=== PATIENT | female | born 1975 | race Caucasian/White ===

== ENCOUNTER 2024-02-12 16:03 | Emergency (ER) | payer OTHER, SELFPAY ==
[2024-02-12 16:04] VITALS: BP 159/94
--- NOTE | 2024-02-12 17:17 | ED.GENMED ---
History of Present Illness
General
Chief Complaint: Musculo-Skeletal Complaint
Source: patient and family
Exam Limitations: none
Time Seen by Provider: 02/12/24 16:24
Nursing documentation reviewed up to this point in time: agreed with
History of Present Illness
History of Present Illness:
48-year-old female past medical history of ADHD bipolar asthma presenting to the emergency department today with concerns of left-sided leg swelling over the past 2 weeks. Initially believes he may have sustained some type of injury while working
had an x-ray at [facility] 1 week ago that did not show any bony abnormalities ongoing discomfort to the area. Seems to be worse with excessive use she is noticed swelling distal to her knee on the left side. Denies any history of blood
clots recent trauma surgery mobilization redness swelling warmth fevers.
Past History
Past History
ED Past Medical History: Asthma, Other (Asthma) and Other (Migraines)
ED Past Surgical History: Cholecystectomy, Gynecological (Tubal ligation) and Orthopedic (Arthroscopic surgery on her knee)
Social History
Tobacco: Smoker
Alcohol: None
Drug: None
Personal:
Living: with family
Employment: Not employed
Family History
Family History: Other (Skin cancer, grandfather with a pacemaker)
Review of Systems
Review of Systems
Allergies reviewed?: Yes
All Other Systems: ROS reviewed and negative except as documented in HPI and ROS
Phy Exam
Physical Exam
Physical Exam:
GENERAL: Alert , in no apparent distress
EYE: pupils equal and reactive
NECK: Supple, no significant adenopathy.
ENT: o/p clr, mmm.
CARDIAC: Regular rate and rhythm .
LUNGS: Clear breath sounds bilaterally, no acute respiratory distress, no wheezes/rales/rhonchi
ABDOMEN: Soft, without focal tenderness, no r/g, no cvat
NEUROLOGICAL: Alert and oriented, no focal neuro deficits
SKIN: Warm and dry, skin intact.
MUSCULOSKELETAL: +1 nonpitting edema distal to the left knee. No redness or warmth good range of motion and strength of the hip knee and ankle., well perfused.
PSYCH: Normal and appropriate interaction.
Course
Orders/Labs/Results
Orders:
Orders
02/12/24 16:31
Venous Doppler Lwr Ext Left [US Periph Venous LOWER Ext LT] Urgent
Comment:
Reason For Exam: leg swelling
Vital Signs
Initial and Last Documented VS:
Initial Vital Signs
Temp Pulse Resp BP Pulse Ox
98.1 F 98 18 159/94 96
02/12/24 16:04 02/12/24 16:04 02/12/24 16:04 02/12/24 16:04 02/12/24 16:04
Last Documented Vital Signs
Temp Pulse Resp BP Pulse Ox
98.1 F 98 18 159/94 96
02/12/24 16:04 02/12/24 16:04 02/12/24 16:04 02/12/24 16:04 02/12/24 16:04
MDM/Problems Addressed
MDM/Problems Addressed:
48-year-old female presenting to the emergency department today with concerns of left-sided leg discomfort swelling over the past 2 weeks. Had an x-ray last week without signs of bony injury to the knee. No redness or warmthevidence or symptoms
consistent with infection good range of motion of all joints of the left leg. No breaks in the skin. Normal distal pulses neurologically intact distally. Ultrasound performed showing patellar bursitis which likely does explain the patient's
current symptoms. Plan for rest ice compression elevation but otherwise given information for outpatient follow-up stable for outpatient management. Return precautions given.
*Critical Care Note
Total Time (30-74mins, 75-104mins- exclusive of procedures): Not Applicable
ED Attending Note
-
Portions of this chart may have been created with voice recognition software.� Occasional wrong word or��sound alike� substitutions may have occurred due to the inherent limitations of voice recognition software.
Discharge Plan
Departure
Patient Disposition: Home (Routine Discharge)
Date of Disposition: 02/12/24
Time of Disposition: 17:59
Patient with high blood pressure during this ER visit?: No
Condition: Good
Covid-19: Not Applicable
Discharge Problem:
Patellar bursitis
Instructions: Bursitis (DC)
Prescriptions:
No Action
cetirizine 10 MG tablet
10 mg PO DAILY
montelukast [Singulair] 10 MG tablet
10 mg PO DAILY
albuterol sulfate 2.5 MG/3 ML solution for nebulization
2.5 mg inhalation Q4HPRN PRN (Reason: shortness of breath)
fluticasone propionate 1 SPRAY spray,suspension
2 sprays intranasal DAILY
albuterol sulfate 1 PUFF HFA aerosol inhaler
2 puff inhalation R Q4HPRN PRN (Reason: shortness of breath)
ibuprofen 600 MG tablet
600 mg PO Q6HPRN PRN (Reason: pain) Qty: 20 0RF
fluticasone propion-salmeterol [Advair Diskus] 500-50 mcg/dose blister with device
1 inh inhalation BID
azithromycin 250 mg Tablet
500 mg PO DAILY 3 Days Qty: 6 0RF
prednisone 10 mg tablet
10 mg PO DAILY 12 Days Qty: 12 0RF
Rx Instructions:
40 mg daily. Reduce by 10 mg (1 tab) every three days until finish.
metformin 500 mg Tablet
500 mg PO BID@0800,1700 30 Days Qty: 60 0RF
(DME) Accu-Chek Guide test strips Strip
Qty: 100 0RF
Rx Instructions:
As Directed
insulin glargine [Lantus Solostar U-100 Insulin] 100 unit/mL (3 mL) Insulin Pen
15 unit SC HS 30 Days Qty: 5 0RF
(DME) blood-glucose meter [Accu-Chek Guide Glucose Meter] Misc
Qty: 1 0RF
Rx Instructions:
As Directed
(DME) lancets [Accu-Chek Softclix Lancets] Misc
Qty: 100 0RF
Rx Instructions:
As Directed
(DME) pen needle, diabetic [BD Ultra-Fine Joellen Pen Needle] 32 gauge x 5/32' Needle
Qty: 50 0RF
Rx Instructions:
As Directed
Referrals:
Clarence Kauffman MD [Active] - Follow up in 5-7 days
UNKNOWN - PT DOES,NOT KNOW [Family Provider] -
Activity Restrictions/Additional Instructions:
You came to the emergency department today with concerns of left-sided leg pain mainly coming from the knee. You are found to have likely bursitis on your ultrasound but no signs of life-threatening concerns or blood clot. Please rest ice compress
and elevate follow-up with orthopedics as needed. Return to the emergency department for any worsening, new or concerning symptoms. For discomfort in the meantime please take an anti-inflammatory medication for example Motrin 600 mg every 6 hours.
Interventions
Interventions:
*General Assessment Last Done: 02/12/24 16:04
*Neglect/Abuse Screening Last Done: 02/12/24 16:04
ED-Musculoskeletal Assessment Last Done: 02/12/24 16:16
Discharge Date and Time
Print Language: UKRAINIAN
== END 2024-02-12 18:13 | disposition home or self-care (01) ==
LOC: EMR 16:03
PROVIDERS: EMERGENCY PHYSICIAN Emergency Medicine
DX: M70.42 Prepatellar bursitis, left knee (principal); F17.200 Nicotine dependence, unspecified, uncomplicated; J45.909 Unspecified asthma, uncomplicated; F31.9 Bipolar disorder, unspecified
CPT/HCPCS: 99284; 93971

== ENCOUNTER 2024-05-18 12:42 | Emergency (ER) | payer BC, SELFPAY ==
[2024-05-18] VITALS (8 sets, daily range): BP systolic 115–145; BP diastolic 63–113; BMI 34.3
--- NOTE | 2024-05-18 13:18 | ED.GENMED ---
History of Present Illness
General
Chief Complaint: Breathing Problem
Source: patient
Exam Limitations: none
Time Seen by Provider: 05/18/24 13:03
Nursing documentation reviewed up to this point in time: agreed with
History of Present Illness
History of Present Illness:
pt is a 48 y/o F with h/o asthma, smoking
no intubations rare hospitalizations
here with wheezing and cough x 1-2 days
says her kids had cold symptoms and tested neg for covid
she started feeling congested 2 days ago and then started wheezing more yesterday
used her neb machine more often
say sshe couldn't catch her breath this morning and thinks she used it back to back 3 times
she feels SOB
denies fever, chills, chest pain, leg swelling
had steroids last about 1 mo ago by pcp
she has dm and her bg is 200 currently
Past History
Past History
ED Past Medical History: Asthma, Other (Asthma) and Other (Migraines)
ED Past Surgical History: Cholecystectomy, Gynecological (Tubal ligation) and Orthopedic (Arthroscopic surgery on her knee)
Social History
Tobacco: Smoker
Alcohol: None
Drug: None
Personal:
Living: with family
Employment: Not employed
Family History
Family History: Other (Skin cancer, grandfather with a pacemaker)
Review of Systems
Review of Systems
Allergies reviewed?: Yes
All Other Systems: Not applicable
Phy Exam
Physical Exam
Physical Exam:
GENERAL: Alert , in no apparent distress
EYE: pupils equal and reactive
NECK: Supple
ENT: o/p clr, mmm.
CARDIAC: Regular rate and rhythm .
LUNGS: able to speak in full sentences, but does have some coughing
+ b/l insp and exp wheezing, diminished BS
ABDOMEN: Soft, without focal tenderness, no r/g, no cvat, normal bowel sounds
NEUROLOGICAL: Alert and oriented, no focal neuro deficits
SKIN: Warm and dry, skin intact.
MUSCULOSKELETAL: No edema, well perfused. neg christin's sign
PSYCH: Normal and appropriate interaction.
Scores
Heart Failure Risk
Heart Failure Risk Score: Not Applicable
Course
Orders/Labs/Results
Orders:
Orders
05/18/24 13:14
Ipratropium/Albuterol Sulfate [Duoneb] 3 ml INH R NOW ONE
Ipratropium/Albuterol Sulfate [Duoneb] 3 ml INH R NOW STA
Prednisone [Deltasone] 50 mg PO NOW STA
05/18/24 13:20
COVID-19 Antigen Urgent
Source: Nasal Swab
Influenza A+B Rapid Molecular Urgent
PARVIN Source: Nasal Swab
Specimen Description:
05/18/24 14:03
Ipratropium/Albuterol Sulfate [Duoneb] 3 ml INH R NOW STA
05/18/24 14:54
CR Chest - 2 Views Urgent
Comment:
Reason For Exam: ASTHMA
05/18/24 15:26
Albuterol Sulfate [Ventolin Nebules] 10 mg INH R NOW STA
05/18/24 15:35
Electrocardiogram (*1) Urgent
Reason for Study: Shortness of Breath
EKG- Treatment ONCE
05/18/24 15:42
Complete Blood Count/With Diff Urgent
Comprehensive Metabolic Panel Urgent
05/18/24 15:46
Admit/Transfer Patient As Directed
Co-Sign Provider:
Level of Care: Observation services
Assign to:: Medical/Surgical
Physician / Group: rock
Diagnosis: asthma exacerbation
Code Status As Directed
Resuscitation Status: Full Code
PRN Pain Medication Management As Directed
May give lesser potent ordered pain med per pt: Yes
preference::
Protocol:: Medication orders for pain may be administered in a
manner that supports deferring to patient preference
when the pt is:
- Requesting an ordered lesser potent pain medication.
Least to most potent pain medications are defined
as: acetaminophen < NSAID < tramadol < opioids
(morphine, oxycodone, hydromorphone).
- Requesting a lesser dose of the same medication IF
ORDERED.
- Requesting a less intrusive route of administration
if both routes are prescribed by the provider (PO <
IV).
Abnormal Lab Results
05/18/24
15:42
WBC 19.0 H 10^3/uL
(4.8-10.8)
MCH 26.1 L pg
(27.0-31.0)
MCHC 31.9 L g/dL
(33.0-37.0)
RDW 16.5 H %
(11.5-14.5)
MPV 12.2 H fL
(7.4-10.4)
Abs Immat Gran (auto) 0.1 H 10^3/uL
(0-0.05)
Absolute Neuts (auto) 15.4 H 10^3/uL
(1.4-6.5)
Absolute Monos (auto) 0.8 H 10^3/uL
(0.1-0.6)
Immature Gran % 0.6 H %
(0-0.5)
Neutrophils % 80.8 H %
(42.2-75.2)
Lymphocytes % 10.8 L %
(20.5-51.1)
Carbon Dioxide 21 L mmol/L
(22-30)
Glucose 239 H mg/dl
(70-99)
05/18/24 15:42
05/18/24 15:42
Vital Signs
Initial and Last Documented VS:
Initial Vital Signs
Temp Pulse Resp BP Pulse Ox
97.6 F 100 22 133/92 88
05/18/24 12:43 05/18/24 12:43 05/18/24 12:43 05/18/24 12:43 05/18/24 12:43
Last Documented Vital Signs
Temp Pulse Resp BP Pulse Ox
98.1 F 74 16 115/63 90
05/18/24 16:55 05/18/24 16:55 05/18/24 17:04 05/18/24 16:00 05/18/24 17:04
MDM/Problems Addressed
Differential Diagnosis Includes:
asthma exacerbation, copd,
MDM/Problems Addressed:
48 y/o F
smoker
asthma
no intubations an dminimal hosptilzations
here with wheezing worsenign the past 24 hoiurs
mild cold sypmtoms
no fever, no chest pain
pt has full sentences, no hypoxia in room
she had pulse ox 88% on ra in traige but she has acrlytic nails
while in the treatment room she has pulse ox 96%
wheezxing present
no resp distress
will treat with steorids and duonebs
1545
pt is still wheezing with spastic cough
iwll place on continuous neb
pulse ox is 88% on RA
will put on o2 and admit
cxr in dep reviewed, neg
1700 - pt was admitted but her daughte needs to be taken home and apparently due to daughter's anxiety, she wouldn't 'allow' anyone else to transport her
so she said she needed to leave
signed AMA form after we tried several different attempts to convince her or get alternatire transportation home
*Critical Care Note
Total Time (30-74mins, 75-104mins- exclusive of procedures): Not Applicable
ED Attending Note
-
Portions of this chart may have been created with voice recognition software.� Occasional wrong word or��sound alike� substitutions may have occurred due to the inherent limitations of voice recognition software.
Discharge Plan
Departure
Patient Disposition: Home (Routine Discharge)
Date of Disposition: 05/18/24
Time of Disposition: 15:34
Patient with high blood pressure during this ER visit?: No
Condition: Fair
Covid-19: Negative COVID-19
Discharge Problem:
Asthma, Hypoxia, Left against medical advice
Instructions: Asthma, Adult ED
Prescriptions:
New
albuterol sulfate 90 mcg/actuation HFA aerosol inhaler
2 puff inhalation QID PRN (Reason: shortness of breath or wheezing) Qty: 6.7 0RF
albuterol sulfate 2.5 mg /3 mL (0.083 %) solution for nebulization
2.5 mg inhalation QID PRN (Reason: bronchospasm) Qty: 90 0RF
prednisone 50 mg tablet
50 mg PO DAILY Qty: 5 0RF
No Action
montelukast [Singulair] 10 MG tablet
10 mg PO DAILY
fluticasone propion-salmeterol [Advair Diskus] 500-50 mcg/dose blister with device
1 inh inhalation R BID
albuterol sulfate 0.63 mg/3 mL Solution For Nebulization
0.63 mg INHALATION R Q4HPRN PRN (Reason: sob)
fexofenadine [Nany] 180 mg Tablet
180 mg PO DAILY
potassium 99 mg Tablet
99 mg PO DAILY
naproxen sodium [Aleve] 220 mg Tablet
220 mg PO BID
albuterol sulfate 90 mcg/actuation Hfa Aerosol Inhaler
2 puff INHALATION R Q4HPRN PRN (Reason: sob)
fluticasone propionate [Flonase] 50 mcg/actuation Dixon,Suspension
1 spray INTRANASAL BID
ipratropium bromide 0.02 % Solution
2.5 ml INHALATION R Q6HPRN PRN (Reason: sob)
magnesium oxide 400 mg magnesium Tablet
400 mg PO DAILY
metformin 500 mg tablet
1,000 mg PO BID@0800,1700
insulin glargine [Lantus Solostar U-100 Insulin] 100 unit/mL (3 mL) insulin pen
16 unit SC BID
Referrals:
Rachel Coronado CRNP [Family Provider] - Follow up in 2-3 days
Stand Alone Forms: Return to Work
Activity Restrictions/Additional Instructions:
He decided to leave AGAINST MEDICAL ADVICE despite the fact that your oxygen level was low and you are wheezing. Please take the prednisone once a day for 5 days starting tomorrow. Use your inhaler or your neb machine every 4-6 hours as needed for
shortness of breath and wheezing. Your white blood cell count was elevated, this could be from steroids but this could also be from potential infection. If you spike a fever you may need antibiotics, please return for worsening symptoms like chest
pain or shortness of breath.
Today your chest x-ray was negative and your flu and COVID were also negative
Interventions
Interventions:
*Risk Screen - Suicide Last Done: 05/18/24 12:43
*General Assessment Last Done: 05/18/24 12:43
*Neglect/Abuse Screening Last Done: 05/18/24 13:14
ED- Fall Risk Assessment Last Done: 05/18/24 13:14
*ED COVID-19 Vaccine History Last Done: 05/18/24 12:43
*Nursing Disposition Last Done: 05/18/24 17:04
ED- Cardiac Assessment Last Done: 05/18/24 13:14
ED- Pulmonary Assessment Last Done: 05/18/24 13:14
Discharge Date and Time
Discharge Date/Time: 05/18/24 17:09
Print Language: ETHIOPIAN
[2024-05-18] MEDS: DUONEB 3 ML INH ×3 (13:19→14:08)
[2024-05-18] MEDS: DELTASONE 50 MG PO (13:19)
[2024-05-18 14:04] LABS: COVID-19 Antigen Negative (Negative)
[2024-05-18] MEDS: VENTOLIN NEBULES 10 MG INH (15:38)
--- NOTE | 2024-05-18 15:52 | HPS.HSE ---
Family Physician
-
Family Physician: CHRISTI Mancilla
Chief Complaint
-
cough
History of Present Illness
48-year-old female past medical history of asthma, diabetes, migraines, presenting with wheezing and cough and shortness of breath for the past 1 to 2 days. Kids had cold symptoms and tested negative for COVID. She started feeling congested 2 days
ago and started wheezing more yesterday. She was nebulizer more often. Denies fevers or chills, chest pain or leg swelling. He was treated with steroids 1 month ago her primary care physician.
Her daughter recently had upper respiratory symptoms.
Patient is currently in the process of quitting smoking. She smokes 1 or 2 cigarettes a day and vapes sometimes. Denies alcohol use.
Medical History
Past Medical History
Past Medical History: Reports Other ( asthma, diabetes, migraines,)
Past Surgical History: Reports Other (Cholecystectomy, Gynecological (Tubal ligation) and Orthopedic (Arthroscopic surgery on her knee))
Social History
Tobacco: Smoker
Alcohol: None
Drug: None
Family History
Family History: Not pertinent
Allergies / Home Medications
Allergies reflects when Allergies were last updated in [employer].
Home Medications with original date entered in [employer]
Allergy/Medication List:
Allergies
Allergy/AdvReac Type Severity Reaction Status Date / Time
codeine Allergy anaphlaxsis Verified 05/18/24 12:47
and hives
pollen extracts Allergy Seasonal Verified 05/18/24 12:47
Home Medications
montelukast 10 mg tablet (Singulair) 10 mg PO DAILY 06/18/14
fluticasone 500 mcg-salmeterol 50 mcg/dose blistr powdr for inhalation (Advair Diskus) 1 inh inhalation R BID Lung/breathing issues 06/10/22
albuterol sulfate 0.63 mg/3 mL solution for nebulization 0.63 mg inhalation R Q4HPRN PRN sob 05/18/24
albuterol sulfate 90 mcg/actuation aerosol inhaler 2 puff inhalation R Q4HPRN PRN sob 05/18/24
fexofenadine 180 mg tablet 180 mg PO DAILY 05/18/24
fluticasone propionate 50 mcg/actuation nasal spray,suspension 1 spray intranasal BID 05/18/24
insulin glargine 100 unit/mL (3 mL) subcutaneous pen (Lantus Solostar U-100 Insulin) 16 unit SC BID 05/18/24
ipratropium bromide 0.02 % solution for inhalation 2.5 ml inhalation R Q6HPRN PRN sob 05/18/24
magnesium oxide 400 mg PO DAILY 05/18/24
metformin 500 mg tablet 1,000 mg PO BID@0800,1700 05/18/24
naproxen sodium 220 mg tablet (Aleve) 220 mg PO BID 05/18/24
potassium 99 mg tablet 99 mg PO DAILY 05/18/24
Review of Systems
-
History Source: Patient
A 12 point ROS was completed and negative except as noted: Yes
Constitutional: Reports No Symptoms
EENT: Reports No Symptoms
Respiratory: Reports See HPI
Cardiac: Reports No Symptoms
Abdomen/GI: Reports No Symptoms
: Reports No Symptoms
Musculoskeletal: Reports No Symptoms
Skin: Reports No Symptoms
Neurological: Reports No Symptoms
Endocrine: Reports No Symptoms
Hematologic/Lymphatic: Reports No Symptoms
Psych: Reports No Symptoms
Physical Exam
Vital Signs
Vital Signs
Temp Pulse Resp BP Pulse Ox
97.6 F 86 16 116/70 92
05/18/24 12:43 05/18/24 15:35 05/18/24 15:35 05/18/24 15:35 05/18/24 15:35
Physical Exam
General: Well Developed, Well Nourished and No Apparent Distress
HEENT: NormoCephalic, Moist mucous membranes and Atraumatic
Respiratory: Wheezes
Cardiac: S1/S2 and Regular Rhythm; No Murmur or Rub
GI: Soft, Non Tender, Non Distended and Normal Bowel Sounds; No Organomegaly
Rectal: Deferred by Provider
Musculoskeletal: No Clubbing, No Cyanosis and No Edema
Skin: No Rash
Neuro: Nonfocal/grossly intact
Data Reviewed
-
Lab Data: Labs Reviewed by me
Old Records: Reviewed
Impression/Plan
-
IMPRESSION:
PLAN:
# Acute asthma exacerbation
-Bilateral wheeze
-DuoNebs every 6 hours
-Dexamethasone 4 every 12
-Mucinex
-Continue Breo
-Continue montelukast
-CBC and BMP pending
Type 2 diabetes
-continue metformin
-Continue Lantus 16 units twice daily
History of migraines
Hypothyroidism
Full code
DVT prophylaxis�heparin
Regular diet
[2024-05-18 15:56] LABS: % Basophils 0.6 % (0-2); % Eosinophils 3.1 % (0-6); % Immature Granulocytes 0.6 % (0-0.5); % Lymphocytes 10.8 % (20.5-51.1); % Monocytes 4.1 % (1.7-9.3); % Neutrophils 80.8 % (42.2-75.2); Absolute Basophils 0.1 10^3/uL (0-0.2); Absolute Eosinophils 0.6 10^3/uL (0-0.7); Absolute Immature Granulocytes 0.1 10^3/uL (0-0.05); Absolute Lymphocytes 2.1 10^3/uL (1.2-3.4); Absolute Monocytes 0.8 10^3/uL (0.1-0.6); Absolute Neutrophils 15.4 10^3/uL (1.4-6.5); Hematocrit 38.6 % (37.0-47.0); Hemoglobin 12.3 g/dL (12.0-16.0); Mean Corp Hgb Conc. 31.9 g/dL (33.0-37.0); Mean Corpuscular Hgb 26.1 pg (27.0-31.0); Mean Platelet Volume 12.2 fL (7.4-10.4); Nucleated Red Blood Cells % 0 %; Platelet Count 281 10^3/uL (130-400); Red Blood Cell Count 4.71 10^6/uL (4.20-5.40); Red Cell Dist. Width 16.5 % (11.5-14.5)
[2024-05-18 16:06] LABS: ALT (SGPT) 18 U/L (0-35); AST (SGOT) 20 U/L (14-36); Albumin 4.2 g/dl (3.5-5.0); Alkaline Phosphatase 80 U/L (38-126); Blood Urea Nitrogen 7 mg/dl (7-17); Calcium 8.9 mg/dl (8.4-10.2); Carbon Dioxide 21 mmol/L (22-30); Chloride 102 mmol/L (98-107); Estimated Creatinine Clearance > 125 ml/min; Glucose 239 mg/dl (70-99); Potassium 3.9 mmol/L (3.5-5.1); Sodium 137 mmol/L (135-145); Total Bilirubin 0.4 mg/dl (0.2-1.3); Total Protein 6.6 g/dl (6.3-8.2); eGFR > 60.00
--- NOTE | 2024-05-18 16:46 | EDRN ---
Pt is asking for her 14 year old daughter to stay with her during admission. Bessy Graham aware and is speaking with upper management to explore possibilities for accommodation.
So far, pt has refused most suggestions on how to navigate this obstacle. Pt is asking to leave and have rx sent to pharmacy.
Bessy Graham is heading back in room to offer pts a lyft to come and collect family vehicle and 14 year old. Pt refused offer, asking to leave AMA. Pt states she was able to ambulate in room, get dressed without wearing O2 and states she 'was
75% improved' and feeling better to go home. Provider updated with plan.
== END 2024-05-18 17:09 | disposition home or self-care (01) ==
LOC: EMR 12:42
PROVIDERS: Physician Assistant; EMERGENCY PHYSICIAN Emergency Medicine; FAMILY PHYSICIAN Family Medicine Adult Medicine
DX: J45.901 Unspecified asthma with (acute) exacerbation (principal); R09.02 Hypoxemia; Z53.21 Procedure and treatment not carried out due to patient leaving prior to being seen by health care provider
CPT/HCPCS: 99284; 94640; 71046; 80053; 85025; 87502; 87811; 93005